=== PATIENT | male | born 1990 | race Caucasian/White ===

== ENCOUNTER 2018-07-11 06:43 | Day surgery (SDC) | payer OTHER, MEDICARE, MEDICAID ==
[~2018-07-11] VITALS: Ht 188 cm; Wt 78.0 kg
[~2018-07-11 06:43] MED LIST: SODIUM CHLORIDE 0.9% 1,000 ML IV ONE
[2018-07-11] MEDS ORDERED: AMPICILLIN SODIUM 1 GM/VIAL ONE (07:07)
[2018-07-11] MEDS ORDERED: SODIUM CHLORIDE 0.9% 300 ML ONE (07:08)
[2018-07-11] MEDS ORDERED: RINGERS SOLUTION,LACTATED 1,000 ML IV ONE (07:23)
[2018-07-11] MEDS ORDERED: FERR-89 PO (11:00)
[2018-07-11] MEDS ORDERED: [UNRECOGNIZED DRUG - CODE] PO (11:00)
[2018-07-11] MEDS ORDERED: DIVA-76 PO ×2 (11:00)
[2018-07-11] MEDS ORDERED: QUET300T2 PO (11:00)
[2018-07-11] MEDS ORDERED: LACO100 PO (11:00)
[2018-07-11] MEDS ORDERED: DEXAMETHASONE SOD PHOS 4 MG/ML VIAL IVP ONE (12:00)
[2018-07-11] MEDS ORDERED: SUCCINYLCHOLINE CHLORIDE 20 MG/ML 10 ML VIAL IVP ONE (12:00)
[2018-07-11] MEDS ORDERED: ONDANSETRON HCL 4 MG/2 ML VIAL IVP ONE (12:00)
[2018-07-11] MEDS ORDERED: LIDOCAINE/PF 2% 5 ML VIAL INJ ONE (12:00)
[2018-07-11] MEDS ORDERED: PROPOFOL 1% 20 ML VIAL IVP ONE (12:00)
== END 2018-07-11 13:15 | disposition home or self-care (01) ==
LOC: SURGERY 06:43
PROVIDERS: ATTEND Dentist General Practice
DX: K05.30 Chronic periodontitis, unspecified (principal); K03.6 Deposits [accretions] on teeth; F72 Severe intellectual disabilities; D64.9 Anemia, unspecified; N18.3 Chronic kidney disease, stage 3 (moderate); Z79.899 Other long term (current) drug therapy; Z98.890 Other specified postprocedural states
CPT/HCPCS: 41899; J0290; J0330; J1100; J2405; J2704; J3490; J7050; J7120

== ENCOUNTER 2021-02-24 05:42 | Day surgery (SDC) | payer OTHER, BC, MEDICARE, MEDICAID ==
[~2021-02-24] VITALS: Ht 188 cm; Wt 84.0 kg
[~2021-02-24 05:42] MED LIST changes: +DIVA-111 PO; +FERR-89 PO; +LACO100 PO; +QUET300T2 PO; -SODIUM CHLORIDE 0.9% 1,000 ML IV ONE; +[UNRECOGNIZED DRUG - CODE] PO
[2021-02-24] MEDS ORDERED: DEXAMETHASONE SOD PHOS 4 MG/ML VIAL IVP ONE (05:43)
[2021-02-24] MEDS ORDERED: ROCURONIUM BROMIDE 10 MG/ML 5 ML VIAL IVP ONE (05:43)
[2021-02-24] MEDS ORDERED: PROPOFOL 1% 20 ML VIAL IVP ONE (05:43)
[2021-02-24] MEDS ORDERED: ONDANSETRON HCL 4 MG/2 ML VIAL IVP ONE (05:43)
[2021-02-24] MEDS ORDERED: LIDOCAINE/PF 2% 5 ML VIAL IM ONE (05:43)
[2021-02-24] MEDS ORDERED: FentaNYL CITRATE PF 100 MCG/2 ML VIAL IVP ONE (05:43)
[2021-02-24] MEDS ORDERED: KETAMINE HCL 50 MG/ML 10 ML VIAL IVP ONE (05:43)
[2021-02-24] MEDS ORDERED: SODIUM CHLORIDE 0.9% 1,000 ML IV ONE (06:00)
[2021-02-24] MEDS ORDERED: SODIUM CHLORIDE 0.9% 1,000 ML ONE (06:31)
[2021-02-24] MEDS ORDERED: RINGERS SOLUTION,LACTATED 1,000 ML IV ONE (07:00)
[2021-02-24 07:03] LABS: COVID AG,FIA SOURCE NASOPHARYNGEAL
[2021-02-24] MEDS ORDERED: AMPICILLIN SODIUM 2 GM/NS 100 ML IV ONE (07:15)
[2021-02-24] MEDS ORDERED: ASCO500 PO ×2 (08:09→09:00)
[2021-02-24] MEDS ORDERED: CALC260T16 PO ×2 (08:09)
[2021-02-24] MEDS ORDERED: MULT-264 PO (08:09)
[2021-02-24] MEDS ORDERED: POLY17PO47 PO (08:09)
[2021-02-24 11:10] LABS: BASOPHILS % (AUTO) 0.1 % (0.0-2.0); EOSINOPHILS % (AUTO) 0.1 % (1.0-6.0); HEMATOCRIT 31.1 % (41-53); HEMOGLOBIN 10.6 g/dL (13.5-17.5); LYMPHOCYTES # (AUTO) 0.3 K/uL (1.0-4.8); LYMPHOCYTES % (AUTO) 17.6 % (22.0-44.0); MEAN CORPUSCULAR HEMOGLOBIN 33.3 pg (26.0-34.0); MEAN CORPUSCULAR HGB CONC 33.9 G/dL (31.0-37.0); MEAN CORPUSCULAR VOLUME 98 fL (80-100); MONOCYTES # (AUTO) 0.2 K/uL (0.1-1.0); MONOCYTES % (AUTO) 14.3 % (2.0-9.0); NEUTROPHILS # (AUTO) 1.1 K/uL (1.8-7.7); NEUTROPHILS % (AUTO) 67.9 % (40.0-70.0); RED BLOOD CELL COUNT(AUTO) 3.17 MIL/uL (4.50-5.90)
[2021-02-24 11:13] LABS: CALCIUM, TOTAL 7.1 mg/dL (8.8-10.5); CREATININE 2.32 mg/dL (0.60-1.30); POTASSIUM 4.2 mmol/L (3.5-5.1)
[2021-02-24 11:16] LABS: INR 1.2 (0.9-1.1); PROTHROMBIN TIME 12.6 SEC (9.4-11.6)
[2021-02-24 11:19] LABS: ALBUMIN 3.3 g/dL (3.4-5.0); BILIRUBIN,TOTAL 0.2 mg/dL (0.1-1.0); TOTAL PROTEIN, SERUM 5.8 g/dL (6.4-8.2)
[2021-02-24 14:39] LABS: PLATELET COUNT (AUTO) 89 K/uL (150-450)
== END 2021-02-24 10:40 | disposition home or self-care (01) ==
LOC: SURGERY 05:42
PROVIDERS: ATTEND Dentist General Practice
DX: K02.9 Dental caries, unspecified (principal); K05.30 Chronic periodontitis, unspecified; K03.6 Deposits [accretions] on teeth; K08.89 Other specified disorders of teeth and supporting structures; G40.909 Epilepsy, unspecified, not intractable, without status epilepticus; F84.0 Autistic disorder; E20.9 Hypoparathyroidism, unspecified; N18.30 Chronic kidney disease, stage 3 unspecified; Z79.01 Long term (current) use of anticoagulants; Z79.899 Other long term (current) drug therapy; Z20.822 Contact with and (suspected) exposure to COVID-19
CPT/HCPCS: 36415; 41899; 71045; 80053; 85025; 85610; 85730; 87426; C9803; J0290; J1100; J2405; J2704; J3010; J3490 ×3; J7030